=== PATIENT | male | born 1950 | race Caucasian/White ===

== ENCOUNTER → 2021-11-11 11:34 | Outpatient (BNVA) | payer MEDICARE, SELFPAY | PROVIDERS: PCP Internal Medicine; Visit Provider Psychiatry & Neurology Neurology | DX: G20 Parkinson's disease (principal); F03.90 Unspecified dementia, unspecified severity, without behavioral disturbance, psychotic disturbance, mood disturbance, and anxiety | CPT/HCPCS: Q3014 ==

== ENCOUNTER → 2021-12-02 12:45 | Outpatient (BNVA) | payer MEDICARE, OTHER, SELFPAY | PROVIDERS: PCP Internal Medicine; Visit Provider Psychiatry & Neurology Neurology | DX: G20 Parkinson's disease (principal); F03.90 Unspecified dementia, unspecified severity, without behavioral disturbance, psychotic disturbance, mood disturbance, and anxiety | CPT/HCPCS: 99212 ==

== ENCOUNTER → 2022-03-10 11:18 | Outpatient (BNVA) | payer MEDICARE, OTHER, SELFPAY | PROVIDERS: Visit Provider Psychiatry & Neurology Neurology | DX: G20 Parkinson's disease (principal); F02.80 Dementia in other diseases classified elsewhere, unspecified severity, without behavioral disturbance, psychotic disturbance, mood disturbance, and anxiety; Z79.899 Other long term (current) drug therapy | CPT/HCPCS: 99212 ==

== ENCOUNTER 2022-07-29 10:55 | Outpatient (REF) | payer MEDICARE, OTHER, SELFPAY ==
[2022-07-29 14:07] LABS: MANUAL DIFF FLAG NO
[2022-07-29 14:18] LABS: Appearance Urine Turbid; Color Urine Yellow; Glucose Urine UA Negative (Negative); Leukocyte Esterase Urine Negative (Negative); Nitrite Urine Negative (Negative); PH 5.5 (5.0-9.0); Specific Gravity - Urine >= 1.030 (1.005-1.025); Urine Blood Negative (Negative); Urine Ketones Trace mg/dL (Negative); Urine Protein Negative (Neg-Trace)
[2022-07-29 14:20] LABS: Basophils Percent Auto 0.6 % (0-2); Eosinophils Absolute Auto 0.1 X10*3/uL (0.0-0.4); Hematocrit 44.9 % (42.0-52.0); Hemoglobin 14.8 g/dl (14.0-18.0); Imm Gran Abs Auto 0.02 X10*3/uL (0.00-0.03); Imm Gran Pct Auto 0.3 % (0.0-0.4); Lymphocytes Absolute Auto 1.1 X10*3/uL (1.2-4.9); Mean Corpuscular Volume 94.1 fL (80.0-98.0); Mean Platelet Volume 9.5 fL (9.4-12.4); Monocytes Absolute Auto 0.5 X10*3/uL (0.1-1.2); Monocytes Percent Auto 7.5 % (2-11); Neutrophils Percent Auto 74.6 % (45-73); Platelet Count 265 X10*3/uL (160-400); Red Blood Count 4.77 X10*6/uL (4.60-5.80); Red Cell Distribution Width 12.1 % (11.0-16.0); White Blood Count 6.7 X10*3/uL (4.8-10.8)
[2022-07-29 14:31] LABS: Anion Gap 15 (12-20); Blood Urea Nitrogen 22 mg/dL (9-16); Calcium 9.3 mg/dL (8.4-10.2); Carbon Dioxide 26 mmol/L (22-29); Chloride 105 mmol/L (96-108); Estimated Glomerular Filt Rate > 60; Glucose Random 94 mg/dL (60-115); Potassium 4.2 mmol/L (3.3-5.1); Sodium 142 mmol/L (135-145)
== END 2022-07-29 10:56 | disposition home or self-care (01) ==
LOC: HO.10HDL 10:55
PROVIDERS: Visit Provider Nurse Practitioner Family
DX: R35.0 Frequency of micturition (principal); R30.0 Dysuria; G20 Parkinson's disease; F03.90 Unspecified dementia, unspecified severity, without behavioral disturbance, psychotic disturbance, mood disturbance, and anxiety
CPT/HCPCS: 36415; 80048; 81003; 85025; 99212

== ENCOUNTER → 2022-08-28 10:02 | Outpatient (BNVA) | payer MEDICARE, OTHER, SELFPAY | PROVIDERS: Visit Provider Psychiatry & Neurology Neurology | DX: G20 Parkinson's disease (principal); F02.80 Dementia in other diseases classified elsewhere, unspecified severity, without behavioral disturbance, psychotic disturbance, mood disturbance, and anxiety; Z79.899 Other long term (current) drug therapy | CPT/HCPCS: 99212 ==

== ENCOUNTER → 2023-01-28 11:07 | Outpatient (BNVA) | payer MEDICARE, OTHER, SELFPAY | PROVIDERS: Visit Provider Psychiatry & Neurology Neurology | DX: G20 Parkinson's disease (principal); F02.80 Dementia in other diseases classified elsewhere, unspecified severity, without behavioral disturbance, psychotic disturbance, mood disturbance, and anxiety; Z79.899 Other long term (current) drug therapy | CPT/HCPCS: 99212 ==

== ENCOUNTER 2023-08-03 15:10 | Outpatient (AMB) | payer MEDICARE, OTHER, SELFPAY ==
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
[2023-08-03 15:45] VITALS: BP 88/56; PULSE 67; RESP 7; O2SAT 97; BMI 23.4
== END 2023-08-03 16:29 | disposition home or self-care (01) ==
PROVIDERS: Visit Provider Psychiatry & Neurology Neurology
DX: G20.A1 Parkinson's disease without dyskinesia, without mention of fluctuations (principal); F02.818 Dementia in other diseases classified elsewhere, unspecified severity, with other behavioral disturbance; F22 Delusional disorders; R45.6 Violent behavior; R29.6 Repeated falls; Z74.09 Other reduced mobility
CPT/HCPCS: 99215

== ENCOUNTER → 2023-08-03 15:10 | Outpatient (BNVA) | payer MEDICARE, OTHER, SELFPAY | PROVIDERS: Visit Provider Psychiatry & Neurology Neurology | DX: F03.90 Unspecified dementia, unspecified severity, without behavioral disturbance, psychotic disturbance, mood disturbance, and anxiety (principal); G20.A1 Parkinson's disease without dyskinesia, without mention of fluctuations; R46.89 Other symptoms and signs involving appearance and behavior; F22 Delusional disorders | CPT/HCPCS: 99212 ==

== ENCOUNTER 2024-02-02 15:40 | Outpatient (AMB) | payer MEDICARE, OTHER, SELFPAY ==
--- NOTE | 2024-02-02 15:41 | A.OFFVIS_ITS ---
Vital Signs 02/02/24 15:42 Height 5 ft 9 in Weight 152 lb BMI 22.4 BP 102/60 Blood Pressure Location Rt brachial Position Sitting Respiration 16 Pulse 72 Pulse Source Pulse Oximeter Pulse Oximetry (%) 98 Oxygen Delivery Method Room Air Intake Visit Reasons: 6 mo f/u - could not lvm Intake Note: Pt presents to the office for a 6 month follow up for dementia and aggressive behavior. Prenatal Genetic Counselor Required: No Allergies No Known Allergies Allergy (Verified 02/02/24 15:42) Medication List - Last Reconciled 02/02/24 by Courtney Naranjo MD acetaminophen 500 mg PO BID carbidopa-levodopa 25-100 mg 1.5 tabs at 8am,11am, 2pm, 5pm, 8pm 90 days carboxymethylcellulose sodium 0.5% (Refresh Tears) 1 drp ophthalmic (eye) BID cholecalciferol (vitamin D3) 50 mcg PO DAILY donepezil 10 mg PO DAILY duloxetine 60 mg PO DAILY memantine 10 mg PO BID midodrine 7.5 mg PO TID quetiapine 25 mg PO BID tamsulosin 0.8 mg PO BEDTIME HPI Comments Details: 73-yr-old male presents for f/u visit, accompanied by nurse Lois. He has had multiple falls and forgets to use his walker.He is in Assisted Living at [facility] .He gets private help and he is worried as he does not know the new helpers. He has had some aggressive behavior with new aides. Pt's nurse reports that patient seems more confused and forgetful than his baseline. He reports increased hallucinations. As per PT he refuses to use the walker . He is more stooped and off balance. No dizziness or headaches. He has more fatigue during daytime. Speech is softer. Pt does endorse urinary frequency and dysuria. [facility] Medical History (Updated 02/09/24 @ 08:43 by Courtney Naranjo MD) Parkinson's disease with fluctuating manifestations Aggressive behavior Paranoid behavior Parkinson's disease Dementia Family History Father Dementia Social History Household Members: Spouse Alcohol intake: current Patient Tobacco Use Status: Never used Tobacco Physical Exam Vital Signs: Last Vital Signs Pulse 72 02/02/24 15:42 Resp 16 02/02/24 15:42 BP 102/60 02/02/24 15:42 Pulse Ox 98 02/02/24 15:42 Oxygen Delivery Method Room Air 02/02/24 15:42 BMI result Body Mass Index 22.4 Const General: cooperative Nutritional Appearance: average body habitus Neuro Other: talks fluently but does not make sense , confabulates, hypophonia answers simple questions Tangential No tremors decreased facial expression and blink Mild decreased FFM severely decreased foot taps impulsive gait- with cane very unstable Assessment & Plan Assessment & Plan (1) Parkinson's disease with fluctuating manifestations: Code(s): G20.A2 - Parkinson's disease without dyskinesia, with fluctuations Category: Medical (2) Parkinson's disease: Comment: with frequent falls, hallucinations Code(s): G20 - Parkinson's disease Category: Medical (3) Dementia: Comment: with sundowning Code(s): F03.90 - Unspecified dementia, unspecified severity, without behavioral disturbance, psychotic disturbance, mood disturbance, and anxiety Category: Medical Plan: continue donepezil 10mg qd [id number] bid Increase quetiapine 25 mg q 4pm and 8pm (4) Paranoid behavior: Code(s): F22 - Delusional disorders Category: Medical Plan: geripsych eval (5) Aggressive behavior: Code(s): R46.89 - Other symptoms and signs involving appearance and behavior Category: Medical Plan: Qing psych eval Plan PATIENT IS AT HIGH RISK OF FALLS - HE SHOULD NOT AMBULATE UNSUPERVISED - he should use a walker or a wheel chair. continue donepezil 10mg qd Memantine 10mg bid quetiapine 25 mg 1/2 at q 4pm and 1 tab at 8pm change carbidopa/levodopa 25/100 1.5 tabs 5 times a day 8am,11am,2pm,5pm,8pm Medications: Changed From quetiapine 1 tab at 4 pm and 1 at 8pm 25 mg PO BID 30 days 60 tabs 3RF To quetiapine 1/2 tab at 4 pm and 1 at 8pm 25 mg PO BID Coding Level of Care Code Est Pt Level 4 (36478) Complex EM visit Add On G2211 Diagnoses Parkinson's disease with fluctuating manifestations G20.A2 Parkinson's disease G20 Dementia F03.90 Paranoid behavior F22 Aggressive behavior R46.89
[2024-02-02 15:42] VITALS: BP 102/60; PULSE 72; RESP 16; O2SAT 98; BMI 22.4
== END 2024-02-02 16:11 | disposition home or self-care (01) ==
PROVIDERS: Visit Provider Psychiatry & Neurology Neurology
DX: G20.A2 Parkinson's disease without dyskinesia, with fluctuations (principal); F02.82 Dementia in other diseases classified elsewhere, unspecified severity, with psychotic disturbance; F22 Delusional disorders; R29.6 Repeated falls; R45.5 Hostility
CPT/HCPCS: 99214; G2211

== ENCOUNTER → 2024-02-02 15:40 | Outpatient (BNVA) | payer MEDICARE, OTHER, SELFPAY | PROVIDERS: Visit Provider Psychiatry & Neurology Neurology | DX: G20.A2 Parkinson's disease without dyskinesia, with fluctuations (principal); F03.90 Unspecified dementia, unspecified severity, without behavioral disturbance, psychotic disturbance, mood disturbance, and anxiety; F22 Delusional disorders; Z91.81 History of falling | CPT/HCPCS: 99212 ==